=== PATIENT | female | born 1995 | race Caucasian/White ===

== ENCOUNTER 2017-09-29 10:06 | Inpatient (IN) ==
[2017-09-29] MEDS ORDERED: Famotidine 20 MG/2 ML VIAL IVP PRN (10:26)
[2017-09-29] MEDS ORDERED: Naloxone 0.4 MG/ML INJ IVP PRN (10:26)
[2017-09-29] MEDS ORDERED: Metoclopramide 10 MG/2 ML VIAL IVP PRN ×2 (10:26→13:07)
[2017-09-29] MEDS ORDERED: Ringers Solution, Lactated 1,000 ML IVC SCH (10:30)
[2017-09-29] MEDS ORDERED: Lidocaine -MPF 1% 2 ML VIAL ONE (10:53)
[2017-09-29 11:08] LABS: Basophils % 0.2 %; Eosinophils # 0.1 K/mcL (0.0-0.6); Eosinophils % 0.9 %; Hematocrit 37.5 % (35.3-44.9); Hemoglobin 12.8 g/dL (11.5-15.4); Immature Granulocytes % 0.5 % (0-4); Lymphocytes % 16.1 %; Mean Corpuscular HGB Conc 34.1 g/dL (31.6-35.5); Mean Corpuscular Hemoglobin 30.7 pg (28.0-33.3); Mean Corpuscular Volume 89.9 fL (83.0-100.0); Mean Platelet Volume 11.3 fL (9.4-12.4); Monocytes # 0.9 K/mcL (0.0-1.3); Monocytes % 6.8 %; Neutrophils # 9.5 K/mcL (1.6-8.9); Platelet Count 214 K/mcL (140-400); Red Blood Count 4.17 M/mcL (3.82-4.97); Red Cell Distribution Width 13.7 % (11.5-14.5); Segmented Neutrophils % 75.5 %
--- NOTE | 2017-09-29 11:16 | Anesthesia Evaluation PreOp ---
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 History: Denies Any Significant HX Other Medical History: Renal (pyelonephritis late 2015,), Other (previous narcotic abuse, currently on subutex 8mg QD, reports percocet 30mg 5 times a day prior to subutex.) Anesthesia History: No Prior Anesthetic Complications, Past Anesthesia Alcohol Use: none Drug use: opiates Medications and Allergies Buprenorphine HCl [Subutex] 8 mg SL BID 09/29/17 [History] 3 Allergy/AdvReac Type Severity Reaction Status Date / Time No Known Allergies Allergy Verified 12/17/14 19:36 Anesthesia Results - Labs 09/29/17 10:40 Anesthesia Exam - HEENT Pupil (Motor): Pupils equal Mallampati: III Teeth: Normal Oral Opening: Greater than 3 - HEEL BURNISHER LOC: Oriented HEEL BURNISHER Motor: Normal RUE, Normal LUE, Normal RLE, Normal LLE, Normal Face HEEL BURNISHER Sensory: Normal: RUE, LUE, RLE, LLE, Face - Cardiac Rhythm: Regular - Pulmonary Breath Sounds: bilateral Clear Respiratory Effort: Symmetrical Anesthesia Assess/Plan ASA Score: 2 Modified Raymon Scale for Level of Consciousness: Cooperative, oriented, and tranquil Anesthetic Plan: General, Regional Monitoring Plan: Standard Monitors Recovery Plan: PACU
[2017-09-29] MEDS ORDERED: Acetaminophen IV 1,000 MG/100 ML INFUS..BTL IVPB ONE (11:17)
[2017-09-29] MEDS ORDERED: *HR* OxyCODONE Immed Rel 5 MG TABLET PO PRN ×2 (11:17→15:36)
[2017-09-29] MEDS ORDERED: *HR* Midazolam HCl 2 MG/2 ML VIAL IVP PRN (11:17)
[2017-09-29] MEDS ORDERED: *HR* Promethazine 25 MG/ML VIAL IVP PRN (11:17)
[2017-09-29] MEDS ORDERED: *HR* HYDROmorphone (PF) 1 MG/ML SYRINGE IVP PRN ×2 (11:17→15:33)
[2017-09-29] MEDS ORDERED: *HR* FentaNYL (PF) 100 MCG/2 ML VIAL ONE (11:38)
[2017-09-29] MEDS ORDERED: Morphine Sulfate/PF 5mg/10mL Vial ONE (11:38)
[2017-09-29] MEDS ORDERED: *HR* Oxytocin 10 UNIT/ML VIAL IM ONE (11:38)
[2017-09-29] MEDS ORDERED: *HR* Phenylephrine 10 MG/ML VIAL ONE (11:39)
[2017-09-29] MEDS ORDERED: EPHEDrine 50 MG/ML VIAL ONE (11:40)
[2017-09-29] MEDS ORDERED: Ringers Solution, Lactated 1,000 ML ONE (11:44)
--- NOTE | 2017-09-29 11:59 | OB/GYN History & Physical ---
Date of Encounter: 09/30/17 Time of Encounter: 11:55 Assessment and Plan (1) 39 weeks gestation of Current visit: Yes Status: Acute Plan for repeat section. complicated by subutex and tobacco use. (2) Previous section Current visit: Yes Status: Acute (3) complicated by subutex maintenance, antepartum Current visit: Yes Status: Acute (4) Tobacco use affecting in third trimester, antepartum Current visit: Yes Status: Acute History of Present Illness Chief complaint: Section HPI: Ms. Aragon is a 22 year old female at 39w1d that presents to L&D for repeat section. History of use of subutex during and tobacco use. Good movement. Denies LOF or VB. Labs: Blood type O+ Rubella negative Hepatitis nonreactive T. Pallidium negative Varicella positive HIV nonreactive GBS negative Past Med Surg Social Fam HX - Past Medical History Medical history: no medical history Psychiatric history: no psych history - Past Surgical History Surgical History: - Social History Smoking Status: Current every day smoker Smokeless Tobacco Status: No Alcohol use: none Drug use: opiates - Family History Mother Adopted: No Family Member Ethnicity: Non- Living Status: Still Living Hx Family Cardiac Disorders: No Hx Family Respiratory Disorders: No Hx Family Cancer: No Hx Family GI Disorders: No Hx Family Genitourinary Disorders: No Hx Family Endocrine Disorder: No Hx Family Musculoskeletal Disorders: No Hx Family Neuromuscular Disorders: No Hx Family Neurologic Disorders: No Hx Family HEENT Disorders: No Hx Family Autoimmune Disorders: No Hx Family Reproductive Disorders: No Hx Family Psychosocial Disorders: No Hx Family Medical Disorders: No Obstetrical History - Pregnancies : 2 Para: 1 Medications and Allergies Buprenorphine HCl [Subutex] 8 mg SL BID 09/29/17 [History] 3 Allergy/AdvReac Type Severity Reaction Status Date / Time No Known Allergies Allergy Verified 12/17/14 19:36 Review of System OB All systems PM: reviewed and no additional remarkable complaints except as stated Exam - Constitutional Constitutional: well developed, well nourished, no acute distress - HEENT HEENT: Normocephaly, Mucus Membranes Moist - Neck Neck exam: full ROM, normal inspection, supple - Lungs Respiratory exam: CTAB - Cardiovascular Cardiovascular exam: RRR, +S1, +S2 - Abdomen Abdomen: Present: bowel sounds normal, gravid, non tender - Extremities Extremities exam: normal inspection Results Result Diagrams: 09/30/17 04:24 Abnormal lab results WBC 12.6 K/mcL (4.3-11.1) H 09/29/17 10:40 Neutrophils # 9.5 K/mcL (1.6-8.9) H 09/29/17 10:40 All other labs normal. - VTE Reasons for not Prescribing Prophylaxis: Treatment not Indicated - Low risk for VTE - Attending Attestation I have reviewed the resident's H&P and agree with its contents.
[2017-09-29] MEDS ORDERED: Simethicone 80 MG TAB.CHEW PO PRN (13:07)
[2017-09-29] MEDS ORDERED: Acetaminophen 325 MG TABLET PO PRN (13:07)
[2017-09-29] MEDS ORDERED: Sennosides 8.6 MG TABLET PO PRN (13:07)
[2017-09-29] MEDS ORDERED: Ondansetron 4 MG/2 ML VIAL IVP PRN (13:07)
[2017-09-29 13:15] LABS: Amphetamine Screen,Urine Negative ng/mL (Cutoff=1000); Barbiturate Screen,Urine Negative ng/mL (Cutoff=200); Benzodiazepines Screen,Urine Negative ng/mL (Cutoff=200); Cannabinoid Screen,Urine Negative ng/mL (Cutoff = 50); Cocaine Screen,Urine Negative ng/mL (Cutoff= 300); Opiate Screen,Urine Negative ng/mL (Cutoff=300); Phencyclidine Screen,Urine Negative ng/mL (Cutoff=25)
[2017-09-29] MEDS ORDERED: Oxytocin 20 units/ LR 1000 mL 20 UNIT/1,000 ML BAG IVC SCH (13:15)
--- NOTE | 2017-09-29 13:26 | OB/GYN Procedure Note ---
Section - Date of procedure: 09/29/17 Preop diagnosis: desires repeat Post-op diagnosis: same Procedure: section, repeat low transverse Surgeon: Olman Snow Quantitated Blood Loss: 100 Was there an events and promotions assistant present: Yes Sciences Dean: Yaritza Rodriguez Anesthesiologist: Ananth Arguello Lasting Room Machine Operator: Landen Hernandez Anesthesia Type: Spinal section complications: none Disposition: PACU Specimens: Placenta, Cord blood - (s) A Delivery Date: 09/29/17 Infant Delivery Time: 12:26 Presentation: vertex Position: OA Route of delivery: other ( section) Gender: Male Viability: Viable Pounds: 5 Ounces: 8 Gram Weight: 2.5 kg at 1 minute: 8 at 5 minutes: 9 Shoulder Dystocia: not encountered Specimens collected: cord blood Placenta: spontaneous Cord: nuchal cord, 3 umbilical vessels, nuchal reduced - Narrative Narrative: Ms. Aragon is a 22 year old who presented to labor and deliverly for repeat section. The procedure was described to the patient in detail including possible risks of bleeding, infection, injury to surrounding organ, and possible need for further surgery. Informed consent was obtained prior to proceeding with the procedure. The patient was taken to the operating room where spinal anesthesia was found to be adequate. The patient was prepped and draped in the usual sterile fashion in the supine position with a leftward tilt. After timeout was performed the abdomen was entered through a Maylard skin incision was made with the scalpel and carried through to the underlying layer of fascia using the Bovie. The fascia was incised in the midline and extended laterally using Jacobs scissors. Rectus muscle was divided. David retractor was placed. The peritoneum overlying the lower uterine segment was incised in U-shaped fashion. Uterine cavity was entered sharply extended laterally. Membranes ruptured yielding clear fluid. With fundal pressure, the head was delivered. Loose nuchal cord was relieved. Remainder the infant was delivered, umbilical cord doubly clamped and cut, and infant handed to nursery staff for further evaluation. Placenta was removed. Uterus closed with 0 Monocryl in a single layer. After assurance of hemostasis, retractor was removed. The abdomen was closed in standard fashion using 0 Vicryl in the fascia and 3-0 Monocryl in the skin. Sterile dressing was applied. Patient did well was taken to recovery in satisfactory condition. Counts were correct.
--- NOTE | 2017-09-29 14:02 | Anesthesia Evaluation Post Op ---
Date of Encounter: 09/29/17 Time of Encounter: 14:01 - Vital Signs Vital Signs: vss - Lungs Lungs: Clear Ascult./Percussion - Airway Airway: Non-obstructed - Mental Status Mental Status: Alert & Oriented, Answers Appropriately - Pain Pain Scale used: Airam (Faces) - Nausea Vomiting Nausea Vomiting: Not Present - Hydration Hydration: Landa catheter - Discharge PostOp Status: Transfer Patient to floor (when time in phase 1 is up)
[2017-09-29] MEDS: *HR* Buprenorphine HCl 8 MG TAB.SUBL SL SCH (19:59)
[2017-09-29] MEDS: Acetaminophen IV 1,000 MG/100 ML INFUS..BTL IVPB SCH (20:19)
[2017-09-30] MEDS: Ibuprofen 600 MG TABLET PO PRN ×3 (00:37→17:45)
[2017-09-30] MEDS: Acetaminophen IV 1,000 MG/100 ML INFUS..BTL IVPB SCH ×2 (02:50→09:39)
[2017-09-30 04:36] LABS: Basophils % 0.2 %; Eosinophils # 0.1 K/mcL (0.0-0.6); Eosinophils % 0.8 %; Hematocrit 33.1 % (35.3-44.9); Hemoglobin 11.4 g/dL (11.5-15.4); Immature Granulocytes % 0.4 % (0-4); Lymphocytes # 2.7 K/mcL (0.6-4.6); Lymphocytes % 22.5 %; Mean Corpuscular HGB Conc 34.4 g/dL (31.6-35.5); Mean Corpuscular Hemoglobin 31.1 pg (28.0-33.3); Mean Corpuscular Volume 90.2 fL (83.0-100.0); Mean Platelet Volume 10.4 fL (9.4-12.4); Monocytes # 0.9 K/mcL (0.0-1.3); Monocytes % 7.6 %; Neutrophils # 8.2 K/mcL (1.6-8.9); Nucleated Red Blood Cells 0.2 /100 WBC (0); Platelet Count 210 K/mcL (140-400); Red Blood Count 3.67 M/mcL (3.82-4.97); Red Cell Distribution Width 13.6 % (11.5-14.5); Segmented Neutrophils % 68.5 %
[2017-09-30] MEDS: *HR* Buprenorphine HCl 8 MG TAB.SUBL SL SCH ×3 (09:27→21:22)
[2017-09-30] MEDS: Prenatal Vit/FA 1 EACH TABLET PO SCH (09:27)
--- NOTE | 2017-09-30 09:28 | OB/GYN Progress Note ---
Date of Encounter: 09/30/17 Time of Encounter: 09:26 - Assessment and Plan (1) Status post repeat low transverse section Current Visit: Yes Status: Acute Continue routine postop/ care (2) Encounter for monitoring Subutex maintenance therapy Current Visit: Yes Status: Acute 5 day hold continue RX as scheduled Subjective - Subjective Principal diagnosis: Postop/ day 1 repeat c/s Interval history: Patient sitting up in bed. Patient denies any needs at this time. Patient reports no blood clots and + flatus. Patient reports: appetite normal, voiding normally, pain well controlled, ambulating normally : doing well Objective - Vital Signs Latest vital signs: Vital Signs Temp Pulse Pulse Resp BP Pulse Ox 09/30/17 08:05 98.1 F 66 12 101/64 96 09/30/17 03:00 98.1 F 78 78 14 109/65 96 09/30/17 00:30 98 F 74 14 110/75 98 09/29/17 19:00 98.1 F 60 14 105/72 98 09/29/17 18:00 98.1 F 70 70 16 115/75 95 09/29/17 17:00 97.9 F 68 68 16 113/73 97 09/29/17 16:39 97.9 F 60 16 124/79 97 09/29/17 15:45 16 09/29/17 15:41 97.6 F 85 16 151/92 Intake and Output 09/29/17 09/30/17 09/30/17 23:59 07:59 15:59 Intake Total 100 / 100 100 / 100 120 / 120 Output Total 800 / 800 650 / 650 450 / 450 Balance -700 / -700 -550 / -550 -330 / -330 Intake: IV Fluids 100 / 100 100 / 100 Ofirmev 1,000 mg/100 ml 1,000 100 / 100 100 / 100 mg In 100 ml @ 400 mls/hr IVPB Q6HR [facility] Rx#:[id number] Oral 120 / 120 Output: Urine 450 / 450 Catheter 800 / 800 650 / 650 Other: Meal Breakfast Percent of Meal Consumed 90% - Exam Lungs: bilateral: normal Extremities: Present: normal Abdomen: Present: normal appearance, soft Incision: Present: normal, dry, intact, dressed (MARLYN dressing) Uterus: Present: normal, firm Fundal Height: 1 (U/1) - Labs Labs: Laboratory Results - last 24 hr 09/29/17 09/29/17 09/30/17 10:40 10:40 04:24 WBC 12.6 H 11.9 H RBC 4.17 3.67 L Hgb 12.8 11.4 L Hct 37.5 33.1 L MCV 89.9 90.2 MCH 30.7 31.1 MCHC 34.1 34.4 RDW 13.7 13.6 Plt Count 214 210 MPV 11.3 10.4 Immature Gran % 0.5 0.4 Seg Neutrophils % 75.5 68.5 Lymphocytes % 16.1 22.5 Monocytes % 6.8 7.6 Eosinophils % 0.9 0.8 Basophils % 0.2 0.2 Neutrophils # 9.5 H 8.2 Lymphocytes # 2.0 2.7 Monocytes # 0.9 0.9 Eosinophils # 0.1 0.1 Basophils # 0.0 0.0 Nucleated RBCs/100 WBC 0.2 H Urine Opiates Screen Negative Ur Barbiturates Screen Negative Ur Phencyclidine Scrn Negative Ur Amphetamines Screen Negative U Benzodiazepines Scrn Negative Urine Cocaine Screen Negative U Marijuana (THC) Screen Negative
[2017-10-01] MEDS: Ibuprofen 600 MG TABLET PO PRN (07:40)
[2017-10-01 08:36] VITALS: BP 125/86
[2017-10-01] MEDS: Prenatal Vit/FA 1 EACH TABLET PO SCH (09:07)
[2017-10-01] MEDS: *HR* Buprenorphine HCl 8 MG TAB.SUBL SL SCH (09:08)
--- NOTE | 2017-10-01 12:46 | Discharge Summary ---
Date of Encounter: 10/01/17 Time of Encounter: 12:41 - Discharge Diagnosis (1) Encounter for monitoring Subutex maintenance therapy Priority: Secondary Status: Acute Comments: Spoke with KAMARI Goss who states MERY Randall picked up Suboxone rx on . Pt states she does recall this information and will take her medication accordingly. (2) Status post repeat low transverse section Priority: Primary Status: Acute Comments: Pain well controlled with Suboxone - will continue rx outpatient Tolerating regular diet Ambulating independently Voiding independently Passing flatus but no BM yet Bottlefeeding Lochia light Discharge to guest today I have spoken to the patient twice regarding not sleeping in the bed with in bed. I have advised her of the safety risks to her infant. She verbalizes understanding but has not shown willingness to change this behavior. - Discharge Medications Prescriptions: Ibuprofen [Motrin] 600 mg PO Q6HR PRN #30 tablet PRN Reason: Cramping Docusate [Colace] 100 mg PO BID #60 capsule Home Medications: Acetaminophen [Tylenol] 325 mg PO Q6HR PRN tablet 10/01/17 [Rx] Docusate [Colace] 100 mg PO BID #60 capsule 10/01/17 [Rx] Ibuprofen [Motrin] 600 mg PO Q6HR PRN #30 tablet 10/01/17 [Rx] Simethicone [Gas-X] 80 mg PO TID PRN tab.chew 10/01/17 [Rx] Allergies/Adverse Reactions: 3 Allergy/AdvReac Type Severity Reaction Status Date / Time No Known Allergies Allergy Verified 12/17/14 19:36 Data Procedures and tests throughout hospitalization: Laboratory Tests 09/29/17 09/29/17 09/30/17 10:40 10:40 04:24 WBC 12.6 H 11.9 H RBC 4.17 3.67 L Hgb 12.8 11.4 L Hct 37.5 33.1 L MCV 89.9 90.2 MCH 30.7 31.1 MCHC 34.1 34.4 RDW 13.7 13.6 Plt Count 214 210 MPV 11.3 10.4 Immature Gran % 0.5 0.4 Seg Neutrophils % 75.5 68.5 Lymphocytes % 16.1 22.5 Monocytes % 6.8 7.6 Eosinophils % 0.9 0.8 Basophils % 0.2 0.2 Neutrophils # 9.5 H 8.2 Lymphocytes # 2.0 2.7 Monocytes # 0.9 0.9 Eosinophils # 0.1 0.1 Basophils # 0.0 0.0 Nucleated RBCs/100 WBC 0.2 H Urine Opiates Screen Negative Ur Barbiturates Screen Negative Ur Phencyclidine Scrn Negative Ur Amphetamines Screen Negative U Benzodiazepines Scrn Negative Urine Cocaine Screen Negative U Marijuana (THC) Screen Negative Date of admission: 09/29/17 10:06 Primary care physician: Ananth Olivares MD Consults: 09/29/17 13:07 Consult to Hospital Manager (W&C) [CONS] Routine Reason For Exam: Reason for SW Consult: in subutex group Discharging clinician: Kimberli Alvares Anticipated date of discharge: 10/01/17 - Patient Status Disposition: Home, Self-Care Condition: Good Functional capacity at discharge: independent ambulation Overall status at discharge: patient is progressing back to baseline - Discharge Instructions Instructions: Your 's Appearance (DC), Caring for Your Baby (GEN), Lay Person CPR on Newborns (DC), Caring for Your Breastfed Baby (GEN), Caring for Your Formula Fed Baby (GEN) Follow Up With: Ananth Olivares MD [Primary Care Provider] - Olman Snow MD [Partnered Physician] - Additional Instructions: ATTEND FOLLOW-UP APPOINTMENT Perineal Care: Always wipe front to back Change your pad frequently Use your mynor bottle with warm water and spray front to back Do not douche, use tampons, have sexual intercourse or put anything in your vagina for 4-6 weeks after delivery Bleeding: Vaginal bleeding can last up to 6 weeks Your menstrual period may return as early as 6 weeks after you are discharged from the hospital Harmony/Stitches Care: Vaginal Delivery Vaginal stitches will dissolve within 4-6 weeks Follow perineal care instructions Care Stitches will dissolve on their own If you have harmony, they will need to be removed in the doctors office within 5-7 days. You may shower with stitches or harmony Drip plan or soapy water over the incision to clean. Pat dry gently with a clean towel. Make sure you completely dry under the skin folds DO NOT USE powders, lotions, rubbing alcohol or hydrogen peroxide on or around your incision. This will slow your wound healing It is normal to have soreness, burning, tingling, itchiness and/or numbness as your incision heals Activity: Rest frequently Do not lift anything heavier than a gallon of milk, up to 10-15 pounds No driving for 1-2 weeks for Vaginal delivery No driving for 2-4 weeks for delivery Take stairs slowly, one at a time Gradually increase your daily activity until you are back to your normal routine Do not exercise until you have had your follow-up appointment Bathing: Take a shower daily Do not take a tub bath for the first 4 weeks Diet: Drink plenty of water and fruit juices Eat a well-balanced diet with foods high in fiber such as fruits and vegetables Depression: Your hormones have a major impact on your feelings and emotions. Hormone imbalance may cause changes in your mood, creating unfamiliar thoughts and actions. Support is available to help you understand and cope with these feelings and mood changes. If you answer yes to any of the following questions, please call your health care provider: Are you having trouble sleeping? Are you feeling isolated? Have you lost your appetite? Are you having thoughts of hurting yourself or others? WARNING SIGNS: Heavy bleeding from the vagina (blood is bright red and soaks a sanitary pad in an hour or less.) Passing a blood clot larger than your fist Discharge from the vagina that has a bad odor Temperature over 100.4 F, or if you feel cold and have chills An episiotomy site that is warm, swollen or oozing. Use a mirror if needed Urination (pee) that is painful, very red and swollen or leaking fluid An incision that is painful, very red and swollen and leaking fluid An incision that has come open Breasts that are painful or full with flu like symptoms Redness, warmth or swelling in the calf of your leg Trouble breathing, dizziness, visual disturbance or faintness *Notify your health care provider immediately or go to the nearest Emergency Room if you experience any of the above signs.* To contact the nurses station 24 hours a day, For non-urgent, routine questions, please call the office at - Diet and Activity Activity: increase activity as tolerated Diet: regular diet Hospital Course Reason for admission: section, IUP at term Delivery: section Episiotomy: none Laceration: none Other procedures: none complications: none Discharge diagnosis: IUP at term delivered baby: male Time Attestation: Total time spent providing and/or coordinating discharge services: Time Spent: Less than 30 minutes - VTE Reasons for not Prescribing Prophylaxis: Treatment not Indicated - Low risk for VTE Documentation of Mechanical Device: Intermittent pneumatic compression device Exam - Constitutional Vitals: Temp Pulse Resp BP Pulse Ox 98.2 F 60 16 125/86 98 10/01/17 08:00 10/01/17 08:00 10/01/17 08:00 10/01/17 08:00 10/01/17 08:00 General appearance IM: A&O X 3 - Respiratory Respiratory exam: Present: CTAB - Cardiovascular Cardiovascular exam IM: Present: RRR, +S1, +S2 - GI/Abdominal GI/Abdominal exam IM: normal bowel sounds, no peritoneal signs Incision: normal, intact, dressed - Rectal Rectal exam: deferred - Uterine Tone: Firm Uterus Position: 1 Finger Below Umbilicus, Midline - Extremities Exam Extremities exam IM: Present: normal capillary refill, normal inspection, radial pulses palpable and symmetrical - Neurological Exam Neurological exam: alert, oriented X3 - Psychiatric Additional comments: Signs and symptoms of depression discussed with patient and she verbalizes understanding of when to call for help.
== END 2017-10-01 14:51 | disposition home or self-care (01) | DRG 540 ==
LOC: 1NENULAB 10:06 → 1NENUOBS 14:26
PROVIDERS: ADMIT Obstetrics & Gynecology; ATTEND Obstetrics & Gynecology

== ENCOUNTER → 2019-02-04 17:29 | Observation (INO) ==
--- NOTE | 2019-02-04 14:49 | Discharge Summary ---
Date of Encounter: 02/04/19 Time of Encounter: 16:51 - Discharge Diagnosis (1) 36 weeks gestation of Priority: Primary Status: Acute Comments: Follow up with Dr. Castelan as scheduled Discharge home (2) Uterine contractions Priority: Secondary Status: Acute Comments: No cervical change from SVE ft/80/0 Increase hydration (3) NST (non-stress test) reactive Priority: Secondary Status: Acute - Discharge Medications Prescriptions: No Action Loratadine/Pseudophed (12 HR) [Claritin D (12HR)] 1 each PO BID #20 tab.er.12h Buprenorphine HCl 8 mg SL BID Home Medications: Loratadine/Pseudophed (12 HR) [Claritin D (12HR)] 1 each PO BID #20 tab.er.12h 07/18/18 [Rx] Buprenorphine HCl 8 mg SL BID 09/27/18 [History] Allergies/Adverse Reactions: Allergy/AdvReac Type Severity Reaction Status Date / Time No Known Allergies Allergy Verified 07/18/18 21:31 Date of admission: 02/04/19 14:32 Discharging clinician: Kimberli Alvares Anticipated date of discharge: 02/04/19 - Patient Status Disposition: Home, Self-Care Condition: Good Functional capacity at discharge: independent ambulation Overall status at discharge: patient is progressing back to baseline - Discharge Instructions Follow Up With: Kimberli Castelan MD [Partnered Physician] - - Diet and Activity Activity: increase activity as tolerated Diet: regular diet Hospital Course 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 She was monitored for an hour with no cervical change from fingertip/80/0. She was instructed to increase hydration and discharged home with labor parameters and follow-up Time Attestation: Total time spent providing and/or coordinating discharge services: Time Spent: Less than 30 minutes Exam - Constitutional General appearance IM: A&O X 3, pleasant, no acute distress, answers questions appropriately - Respiratory Respiratory exam: Present: CTAB - Cardiovascular Cardiovascular exam IM: Present: RRR - GI/Abdominal GI/Abdominal exam IM: normal bowel sounds, no peritoneal signs - Rectal Rectal exam: deferred - Uterine Tone: Firm - Extremities Exam Extremities exam IM: Present: full ROM, normal inspection, radial pulses palpable and symmetrical - Neurological Exam Neurological exam: alert, oriented X3 - VTE Reasons for not Prescribing Prophylaxis: Treatment not Indicated - Low risk for VTE
[2019-02-04 15:28] LABS: Bilirubin,Urine Small (Negative); Blood,Urine Negative (Negative); Clarity,Urine Cloudy (Clear); Color,Urine Dark Yellow (Yellow); Glucose,Urine (UA) Normal (Normal); Ketones,Urine Negative (Negative); Leukocyte Esterase,Urine Negative (Negative); Nitrite,Urine Negative (Negative); PH,Urine 7.5 pH Units (5.0-8.0); Protein,Urine Trace mg/dL (Neg-Trace); Specific Gravity,Urine 1.019 (1.010-1.025); Urobilinogen,Urine Normal (Normal)
[2019-02-04 15:37] LABS: Squamous Epithelial Cell,Urine Many per lpf (None-Few)
[2019-02-04 15:38] LABS: WBC,Urine 0-3 per hpf (0-3)
[2019-02-04 15:45] LABS: Amphetamine Screen,Urine Negative ng/mL (Cutoff=1000); Barbiturate Screen,Urine Negative ng/mL (Cutoff=200); Benzodiazepines Screen,Urine Negative ng/mL (Cutoff=200); Cannabinoid Screen,Urine Negative ng/mL (Cutoff = 50); Cocaine Screen,Urine Negative ng/mL (Cutoff= 300); Opiate Screen,Urine Negative ng/mL (Cutoff=300); Phencyclidine Screen,Urine Negative ng/mL (Cutoff=25)
[~2019-02-04 17:29] MED LIST: hydrOXYzine pamoate 25 MG CAPSULE PO SCH
== END | disposition home or self-care (01) ==
LOC: 1NENULAB
PROVIDERS: ADMIT Obstetrics & Gynecology; ATTEND Obstetrics & Gynecology

== ENCOUNTER 2019-03-02 03:09 | Inpatient (IN) ==
[2019-03-02 00:03] LABS: Amphetamine Screen,Urine Negative ng/mL (Cutoff=1000); Barbiturate Screen,Urine Negative ng/mL (Cutoff=200); Benzodiazepines Screen,Urine Negative ng/mL (Cutoff=200); Cannabinoid Screen,Urine Negative ng/mL (Cutoff = 50); Cocaine Screen,Urine Negative ng/mL (Cutoff= 300); Opiate Screen,Urine Negative ng/mL (Cutoff=300); Phencyclidine Screen,Urine Negative ng/mL (Cutoff=25)
[2019-03-02 01:59] LABS: Basophils # 0.1 K/mcL (0.0-0.2); Basophils % 0.3 %; Eosinophils % 0.2 %; Hemoglobin 13.1 g/dL (11.5-15.4); Immature Granulocytes % 0.9 % (0-4); Lymphocytes # 1.6 K/mcL (0.6-4.6); Mean Corpuscular HGB Conc 34.5 g/dL (31.6-35.5); Mean Corpuscular Hemoglobin 30.9 pg (28.0-33.3); Mean Corpuscular Volume 89.6 fL (83.0-100.0); Mean Platelet Volume 10.4 fL (9.4-12.4); Monocytes # 1.4 K/mcL (0.0-1.3); Monocytes % 6.2 %; Neutrophils # 19.3 K/mcL (1.6-8.9); Platelet Count 261 K/mcL (140-400); Red Blood Count 4.24 M/mcL (3.82-4.97); Red Cell Distribution Width 13.4 % (11.5-14.5); Segmented Neutrophils % 85.4 %; White Blood Count 22.6 K/mcL (4.3-11.1)
[~2019-03-02 03:09] MED LIST changes: +CeFAZolin Premix DUPLEX 2,000 MG/50 ML BAG IVPB ONE; +Famotidine 20 MG/2 ML VIAL IVP PRN; +Metoclopramide 10 MG/2 ML VIAL IVP PRN; +Naloxone 0.4 MG/ML INJ IVP PRN; +Ringers Solution, Lactated 1,000 ML IVC ONE; +Ringers Solution, Lactated 1,000 ML ONE; -hydrOXYzine pamoate 25 MG CAPSULE PO SCH
[2019-03-02] MEDS ORDERED: *HR* Morphine Sulfate/PF 10 MG/10 ML AMPUL ONE (03:43)
[2019-03-02] MEDS ORDERED: *HR* FentaNYL (PF) 100 MCG/2 ML VIAL ONE (03:43)
[2019-03-02] MEDS ORDERED: *HR* Oxytocin 10 UNIT/ML VIAL IM ONE (03:43)
[2019-03-02] MEDS ORDERED: *HR* Phenylephrine 10 MG/ML VIAL ONE (03:44)
[2019-03-02] MEDS ORDERED: EPHEDrine 50 MG/ML VIAL ONE (04:20)
[2019-03-02] MEDS ORDERED: Acetaminophen IV 1,000 MG/100 ML INFUS..BTL IVPB ONE (04:47)
[2019-03-02] MEDS ORDERED: *HR* HYDROmorphone (PF) 1 MG/ML SYRINGE IVP PRN (04:47)
[2019-03-02] MEDS ORDERED: Ondansetron 4 MG/2 ML VIAL IVP PRN ×2 (04:47→08:23)
[2019-03-02] MEDS ORDERED: Ringers Solution, Lactated 1,000 ML ONE (04:53)
[2019-03-02] MEDS ORDERED: Esmolol 100 MG/10 ML VIAL IVP ONE (05:01)
[2019-03-02] MEDS ORDERED: *HR* Metoprolol 5 MG/5 ML VIAL IVP ONE (05:01)
[2019-03-02] MEDS ORDERED: Oxytocin 20 units/ LR 1000 mL 20 UNIT/1,000 ML BAG IVC ONE (06:37)
[2019-03-02] MEDS ORDERED: Naloxone 0.4 MG/ML INJ IVP PRN (08:23)
[2019-03-02] MEDS ORDERED: Oxytocin 20 units/ LR 1000 mL 20 UNIT/1,000 ML BAG IVC SCH (08:23)
[2019-03-02] MEDS ORDERED: *HR* OxyCODONE/APAP 5/325 TABLET PO PRN (08:23)
[2019-03-02] MEDS ORDERED: Rho Immune Globulin 1,500 UNIT SYRINGE IM ONE (08:23)
[2019-03-02] MEDS ORDERED: Ringers Solution, Lactated 1,000 ML IVC SCH (08:23)
[2019-03-02] MEDS ORDERED: Metoclopramide 10 MG/2 ML VIAL IVP PRN (08:23)
[2019-03-02] MEDS ORDERED: Sennosides 8.6 MG TABLET PO PRN (08:23)
[2019-03-02] MEDS ORDERED: Simethicone 80 MG TAB.CHEW PO PRN (08:23)
[2019-03-02] MEDS: Prenatal Vit/FA 1 EACH TABLET PO SCH (09:20)
[2019-03-02] MEDS: Ibuprofen 600 MG TABLET PO PRN ×2 (09:21→20:14)
[2019-03-02] MEDS: *HR* Buprenorphine HCl 8 MG TAB.SUBL SL SCH ×2 (17:02→19:45)
[2019-03-02] MEDS ORDERED: metroNIDAZOLE 250 MG TABLET PO ONE (22:00)
[2019-03-03] MEDS: Ibuprofen 600 MG TABLET PO PRN ×2 (05:09→22:29)
[2019-03-03 07:13] LABS: Basophils % 0.1 %; Eosinophils # 0.1 K/mcL (0.0-0.6); Eosinophils % 0.9 %; Hematocrit 32.8 % (35.3-44.9); Immature Granulocytes % 0.7 % (0-4); Lymphocytes % 19.3 %; Mean Corpuscular HGB Conc 32.9 g/dL (31.6-35.5); Mean Corpuscular Hemoglobin 30.8 pg (28.0-33.3); Mean Corpuscular Volume 93.4 fL (83.0-100.0); Mean Platelet Volume 10.1 fL (9.4-12.4); Monocytes # 1.2 K/mcL (0.0-1.3); Monocytes % 7.9 %; Neutrophils # 10.9 K/mcL (1.6-8.9); Platelet Count 241 K/mcL (140-400); Red Blood Count 3.51 M/mcL (3.82-4.97); Red Cell Distribution Width 13.8 % (11.5-14.5); Segmented Neutrophils % 71.1 %; White Blood Count 15.3 K/mcL (4.3-11.1)
[2019-03-03 07:16] LABS: Hemoglobin 10.8 g/dL (11.5-15.4)
[2019-03-03] MEDS: *HR* Buprenorphine HCl 8 MG TAB.SUBL SL SCH (21:34)
[2019-03-04] MEDS: Prenatal Vit/FA 1 EACH TABLET PO SCH (07:45)
[2019-03-04] MEDS: *HR* Buprenorphine HCl 8 MG TAB.SUBL SL SCH (07:45)
[2019-03-04] MEDS: Ibuprofen 600 MG TABLET PO PRN (07:45)
[2019-03-04 08:55] VITALS: BP 109/66
== END 2019-03-04 12:00 | disposition home or self-care (01) | DRG 540 ==
LOC: 1NENULAB → 1NENUOBS 08:25
PROVIDERS: ADMIT Advanced Practice Midwife; ATTEND Advanced Practice Midwife

== ENCOUNTER 2021-11-11 15:19 | Observation (INO) ==
[2021-11-11 17:15] LABS: Hematocrit 38.8 % (35.3-44.9); Hemoglobin 13.3 g/dL (11.5-15.4); Mean Corpuscular HGB Conc 34.3 g/dL (31.6-35.5); Mean Corpuscular Hemoglobin 30.2 pg (28.0-33.3); Platelet Count 179 K/mcL (140-400); Red Blood Count 4.41 M/mcL (3.82-4.97); White Blood Count 17.7 K/mcL (4.3-11.1)
[2021-11-11 17:18] LABS: Influenza A PCR Negative (Negative); Influenza B PCR Negative (Negative); Resp. Syncytial Virus PCR Negative (Negative)
[2021-11-11 17:20] LABS: Bilirubin,Urine Negative (Negative); Blood,Urine Small (Negative); Clarity,Urine Clear (Clear); Color,Urine Yellow (Yellow); Glucose,Urine (UA) Normal (Normal); Hyaline Casts,Urine Few per lpf (None Seen); Ketones,Urine >150 mg/dL (Negative); Leukocyte Esterase,Urine Negative (Negative); Mucus,Urine Few per lpf (None-Few); Nitrite,Urine Negative (Negative); Protein,Urine 70 mg/dL (Neg-Trace); Specific Gravity,Urine 1.026 (1.010-1.025); Squamous Epithelial Cell,Urine Few per hpf (None-Few); Urobilinogen,Urine Normal (Normal)
[2021-11-11 17:21] LABS: SARS-CoV-2 by PCR (In House) Negative (Negative)
[2021-11-11 17:36] LABS: Alanine Aminotransferase 5 Units/L (7-52); Albumin 3.8 g/dL (3.5-5.7); Albumin/Globulin Ratio 1.3 (1.1-2.2); Alkaline Phosphatase 77 Units/L (34-104); Amylase < 10 Units/L (29-103); Aspartate Amino Transferase 9 Units/L (13-39); BUN/Creatinine Ratio 20 (6-26); Bilirubin,Direct 0.1 mg/dL (0.0-0.2); Bilirubin,Indirect 0.3 mg/dL (0.0-1.0); Bilirubin,Total 0.4 mg/dL (0.3-1.0); Blood Urea Nitrogen 17 mg/dL (6-20); Calcium 8.7 mg/dL (8.6-10.3); Carbon Dioxide 20 mEq/L (23-29); Chloride 101 mEq/L (98-107); Globulin 2.9 g/dL (2.4-3.5); Glucose 75 mg/dL (70-105); Lipase < 3 Units/L (11-82); Osmolality,Calculated 278 (280-300); Potassium 3.5 mEq/L (3.5-5.1); Sodium 134 mEq/L (136-145); Total Protein 6.7 g/dL (6.4-8.9); eGFR For African Americans > 60 (> 60); eGFR For Non-African Americans > 60 (> 60)
[2021-11-11] MEDS ORDERED: 0.9 % Sodium Chloride 1,000 ML IVC ONE (17:43)
[2021-11-11 17:44] LABS: Lymphocytes # 2.1 K/mcL (0.6-4.6); Monocytes # 1.4 K/mcL (0.0-1.3); Neutrophils # 14.2 K/mcL (1.6-8.9)
[2021-11-11 17:45] LABS: Reactive Lymphocytes Present (Not Present); Smudge Cells Present (Not Present)
[2021-11-11] MEDS ORDERED: Lidocaine -MPF 2% 5 ML VIAL ONE (18:54)
[2021-11-11] MEDS ORDERED: Ondansetron 4 MG/2 ML VIAL ONE (18:54)
[2021-11-11] MEDS ORDERED: *HR* FentaNYL (PF) 100 MCG/2 ML VIAL ONE (18:54)
[2021-11-11] MEDS ORDERED: *HR* Rocuronium Bromide 50 MG/5 ML VIAL ONE (18:54)
[2021-11-11] MEDS ORDERED: *HR* Midazolam HCl 2 MG/2 ML VIAL ONE (18:55)
[2021-11-11] MEDS ORDERED: *HR* Propofol 200 MG/20 ML VIAL IVP ONE (18:55)
[2021-11-11] MEDS ORDERED: Lidocaine -MPF 4% 5 ML AMPUL ONE (18:57)
[2021-11-11] MEDS ORDERED: Piperacillin/Tazobactam 3.375 GM in 0.9 % Sodium Chloride Mini Bag 100 ML IVPB ONE (19:23)
[2021-11-11] MEDS ORDERED: Acetaminophen IV 1,000 MG/100 ML BAG IVPB ONE ×2 (19:27→19:31)
[2021-11-11] MEDS ORDERED: Ketamine HCL *QUVA* 50mg (1mL) SYRINGE ONE (19:29)
[2021-11-11] MEDS ORDERED: *HR* HYDROmorphone PF 0.5 MG/0.5 ML SYRINGE IVP PRN (19:31)
[2021-11-11] MEDS ORDERED: EPHEDrine 50 MG/ML VIAL ONE (20:02)
[2021-11-11] MEDS ORDERED: Ketorolac 30 MG/ML VIAL ONE (20:25)
[2021-11-11] MEDS ORDERED: Sugammadex Sodium 200 MG/2 ML VIAL IV ONE (20:28)
[2021-11-11 21:58] LABS: Hematocrit 38.1 % (35.3-44.9); Mean Corpuscular HGB Conc 34.1 g/dL (31.6-35.5); Mean Corpuscular Volume 87.8 fL (83.0-100.0); Mean Platelet Volume 10.5 fL (9.4-12.4); Platelet Count 156 K/mcL (140-400); Red Blood Count 4.34 M/mcL (3.82-4.97); Red Cell Distribution Width 13.1 % (11.5-14.5); White Blood Count 17.2 K/mcL (4.3-11.1)
[2021-11-11 22:17] LABS: Lymphocytes # 0.7 K/mcL (0.6-4.6); Monocytes # 1.7 K/mcL (0.0-1.3); Neutrophils # 14.8 K/mcL (1.6-8.9)
[2021-11-11 22:19] LABS: BUN/Creatinine Ratio 20 (6-26); Blood Urea Nitrogen 16 mg/dL (6-20); Calcium 8.1 mg/dL (8.6-10.3); Carbon Dioxide 17 mEq/L (23-29); Chloride 102 mEq/L (98-107); Glucose 97 mg/dL (70-105); Osmolality,Calculated 275 (280-300); Potassium 3.6 mEq/L (3.5-5.1); Sodium 132 mEq/L (136-145); eGFR For African Americans > 60 (> 60); eGFR For Non-African Americans > 60 (> 60)
[2021-11-11] MEDS: *HR* Buprenorphine HCl 8 MG TAB.SUBL SL SCH (22:23)
[2021-11-11] MEDS: Gabapentin 300 MG CAPSULE PO SCH (22:23)
[2021-11-12 01:35] LABS: Basophils % 0.1 %; Hematocrit 37.4 % (35.3-44.9); Hemoglobin 12.4 g/dL (11.5-15.4); Immature Granulocytes % 0.4 % (0-4); Lymphocytes # 0.5 K/mcL (0.6-4.6); Lymphocytes % 3.6 %; Mean Corpuscular HGB Conc 33.2 g/dL (31.6-35.5); Mean Corpuscular Volume 90.3 fL (83.0-100.0); Mean Platelet Volume 11.2 fL (9.4-12.4); Monocytes # 0.4 K/mcL (0.0-1.3); Neutrophils # 12.5 K/mcL (1.6-8.9); Platelet Count 153 K/mcL (140-400); Red Blood Count 4.14 M/mcL (3.82-4.97); Red Cell Distribution Width 13.2 % (11.5-14.5); Segmented Neutrophils % 92.9 %; White Blood Count 13.5 K/mcL (4.3-11.1)
[2021-11-12] MEDS: Ketorolac 30 MG/ML VIAL IVP SCH ×2 (01:38→07:04)
[2021-11-12] MEDS: Acetaminophen IV 1,000 MG/100 ML BAG IVPB SCH ×2 (01:38→09:04)
[2021-11-12] MEDS: Ondansetron 4 MG/2 ML VIAL IVP SCH ×2 (01:39→07:05)
[2021-11-12 02:00] LABS: BUN/Creatinine Ratio 20 (6-26); Blood Urea Nitrogen 15 mg/dL (6-20); Calcium 8.1 mg/dL (8.6-10.3); Carbon Dioxide 19 mEq/L (23-29); Chloride 104 mEq/L (98-107); Glucose 100 mg/dL (70-105); Osmolality,Calculated 281 (280-300); Potassium 3.9 mEq/L (3.5-5.1); Sodium 135 mEq/L (136-145); eGFR For African Americans > 60 (> 60); eGFR For Non-African Americans > 60 (> 60)
[2021-11-12] MEDS: Piperacillin/Tazobactam 3.375 GM in 0.9 % Sodium Chloride Mini Bag 100 ML IVPB SCH ×2 (02:07→12:24)
[2021-11-12 02:33] LABS: Platelet Estimate Normal (Normal)
[2021-11-12 07:51] VITALS: PULSE 73
[2021-11-12] MEDS: *HR* Buprenorphine HCl 8 MG TAB.SUBL SL SCH (09:01)
[2021-11-12] MEDS: Gabapentin 300 MG CAPSULE PO SCH (09:01)
[2021-11-12 11:48] VITALS: BP 95/64; TEMP 97.5; O2SAT 97
== END 2021-11-12 13:19 | disposition home or self-care (01) ==
LOC: EMEROOARM 15:19 → 3ANU 15:19
PROVIDERS: ADMIT Surgery; ATTEND Surgery